=== PATIENT | male | born 1950 | race Caucasian/White ===

== ENCOUNTER 2025-03-23 07:59 | Outpatient (CLI) | payer MEDICARE | END 2025-03-23 08:00 | disposition home or self-care (01) | LOC: CSHULT 07:59 | PROVIDERS: ATTEND Internal Medicine Gastroenterology | DX: K21.9 Gastro-esophageal reflux disease without esophagitis (principal); R10.13 Epigastric pain; K76.0 Fatty (change of) liver, not elsewhere classified | CPT/HCPCS: 76705 ==